=== PATIENT | male | born 1965 | race African-American/Black ===

== ENCOUNTER 2019-12-09 17:22 | Emergency (ER) | payer MEDICAID, OTHER ==
[~2019-12-09] VITALS: Ht 175.3 cm; Wt 79.4 kg
--- NOTE | 2019-12-09 17:27 | Emergency Room Report ---
History of Present Illness General Chief Complaint: Seizure Source: Patient Present Illness HPI Patient is a 54-year-old male brought in by EMS after witnessed seizure. He had a prior history of seizure disorder. He had prior history of hypertension. He had been brought in after seizure on the bus. He normally takes Dilantin. Patient is known to be postictal by paramedics. Denies any patient's noted to have a low blood pressure after the seizure. He was given IV fluids and blood pressure improved after supine position. COVID-19 risk:Contact w/high r: No COVID-19 risk:Travel to affect: No Has patient experienced corado: No Allergies: Coded Allergies: No Known Allergies (Unverified , 12/09/19) Patient History Reviewed Nursing Documentation: PMH: Agreed; PSxH: Agreed Nursing Documentation-PMH Hx Hypertension: Yes Hx Seizures: Yes Review of Systems All Other Systems: negative except mentioned in HPI Physical Exam Vital Signs Date Time Temp Pulse Resp B/P (MAP) Pulse Ox O2 Delivery O2 Flow Rate FiO2 12/09/19 17:16 98.1 75 18 133/86 (102) 97 Room Air Sp02 EP Interpretation: reviewed, normal General Appearance: normal inspection, well appearing, no apparent distress, alert, GCS 15 Head: atraumatic ENT: normal ENT inspection, hearing grossly normal, normal voice Neck: normal inspection, full range of motion, supple, no bony tend Respiratory: normal inspection, lungs clear, normal breath sounds, no respiratory distress, no retraction, no wheezing Cardiovascular #1: regular rate, rhythm, no edema Gastrointestinal: normal inspection, normal bowel sounds, non tender, soft, no guarding, no hernia Genitourinary: no CVA tenderness Musculoskeletal: normal inspection, back normal, normal range of motion Neurologic: alert, motor strength/tone normal, tailings man III-XII nml as tested, oriented x3, responsive, speech normal, normal inspection Psychiatric: normal inspection, judgement/insight normal, mood/affect normal Medical Decision Making Diagnostic Impression: Primary Impression: Seizure disorder Additional Impression: Subtherapeutic phenytoin level ER Course Patient presented for seizure. Differential diagnosis include was not limited to medication noncompliance, alcohol withdrawal, electrolyte abnormality, arrhythmia among others. Because of complexity of patient's case laboratory tests and imaging studies were ordered. Patient's laboratory testing did not show any evidence of significant abnormality other than subtherapeutic Dilantin level. Patient was loaded with Dilantin. He was stable throughout ER course. He was given prescription for further medications. At the time of discharge patient was awake alert and ambulatory. He was advised to follow-up with his primary care physician for recheck. The patient is advised to follow up with primary care doctor in 1-2 days. Patient is advised to return if any worsening condition or if any changes in status that are concerning. This report is dictated with [employer] software which may occasionally lead to discrepancies related to use of this software. Labs Test 12/09/19 17:40 White Blood Count 5.1 K/UL (4.8-10.8) Red Blood Count 5.02 M/UL (4.70-6.10) Hemoglobin 13.9 G/DL (14.2-18.0) Hematocrit 42.8 % (42.0-52.0) Mean Corpuscular Volume 85 FL (80-99) Mean Corpuscular Hemoglobin 27.6 PG (27.0-31.0) Mean Corpuscular Hemoglobin Concent 32.3 G/DL (32.0-36.0) Red Cell Distribution Width 13.3 % (11.6-14.8) Platelet Count 165 K/UL (150-450) Mean Platelet Volume 8.3 FL (6.5-10.1) Neutrophils (%) (Auto) 55.8 % (45.0-75.0) Lymphocytes (%) (Auto) 33.8 % (20.0-45.0) Monocytes (%) (Auto) 6.7 % (1.0-10.0) Eosinophils (%) (Auto) 1.4 % (0.0-3.0) Basophils (%) (Auto) 2.3 % (0.0-2.0) Sodium Level 145 MMOL/L (136-145) Potassium Level 3.2 MMOL/L (3.5-5.1) Chloride Level 107 MMOL/L (98-107) Carbon Dioxide Level 19 MMOL/L (21-32) Anion Gap 19 mmol/L (5-15) Blood Urea Nitrogen 12 mg/dL (7-18) Creatinine 1.4 MG/DL (0.55-1.30) Estimat Glomerular Filtration Rate 52.4 mL/min (>60) Glucose Level 102 MG/DL (74-106) Calcium Level 9.3 MG/DL (8.5-10.1) Total Bilirubin 0.3 MG/DL (0.2-1.0) Aspartate Amino Transf (AST/SGOT) 18 U/L (15-37) Alanine Aminotransferase (ALT/SGPT) 18 U/L (12-78) Alkaline Phosphatase 74 U/L (46-116) Total Protein 7.3 G/DL (6.4-8.2) Albumin 3.7 G/DL (3.4-5.0) Globulin 3.6 g/dL Albumin/Globulin Ratio 1.0 (1.0-2.7) Phenytoin (Dilantin) Level 1.6 ug/mL (10-20) Last Vital Signs Date Time Temp Pulse Resp B/P (MAP) Pulse Ox O2 Delivery O2 Flow Rate FiO2 12/09/19 17:16 98.1 75 18 133/86 (102) 97 Room Air Disposition: HOME, SELF-CARE Condition: Stable Scripts Phenytoin Sodium Extended* (DILANTIN*) 100 Mg Capsule 100 MG ORAL THREE TIMES A DAY, #90 CAP 0 Refills Prov: Alfred Wilson MD 12/09/19 Alfred Wilson MD Dec 09, 2019 17:27
[2019-12-09 17:30] VITALS: BP 103/66
[2019-12-09 17:53] LABS: BASOPHILS % (AUTO) 2.3 % (0.0-2.0); EOSINOPHILS % (AUTO) 1.4 % (0.0-3.0); HEMATOCRIT 42.8 % (42.0-52.0); HEMOGLOBIN 13.9 G/DL (14.2-18.0); LYMPHOCYTES % (AUTO) 33.8 % (20.0-45.0); MEAN CORPUSCULAR VOLUME 85 FL (80-99); MONOCYTES % (AUTO) 6.7 % (1.0-10.0); NEUTROPHILS % (AUTO) 55.8 % (45.0-75.0); PLATELET COUNT 165 K/UL (150-450); RED BLOOD COUNT 5.02 M/UL (4.70-6.10); RED CELL DISTRIBUTION WIDTH 13.3 % (11.6-14.8); WHITE BLOOD COUNT 5.1 K/UL (4.8-10.8)
[2019-12-09 18:02] LABS: ANION GAP 19 mmol/L (5-15); BLOOD UREA NITROGEN 12 mg/dL (7-18); CALCIUM 9.3 MG/DL (8.5-10.1); CARBON DIOXIDE 19 MMOL/L (21-32); CHLORIDE 107 MMOL/L (98-107); CREATININE 1.4 MG/DL (0.55-1.30); POTASSIUM 3.2 MMOL/L (3.5-5.1); SODIUM 145 MMOL/L (136-145)
[2019-12-09 18:10] LABS: ALANINE AMINOTRANSFERASE 18 U/L (12-78); ALBUMIN 3.7 G/DL (3.4-5.0); ALKALINE PHOSPHATASE 74 U/L (46-116); ASPARTATE AMINO TRANSFERASE 18 U/L (15-37); BILIRUBIN,TOTAL 0.3 MG/DL (0.2-1.0)
[2019-12-09] MEDS ORDERED: Phenytoin 1,000 MG in NS 275 ML IVPB ONE (18:15)
[2019-12-09] MEDS ORDERED: DILANTIN100 MG ORAL (19:00)
[2019-12-09 19:45] VITALS: BP 119/69
[2019-12-09 19:50] VITALS: BP 119/69
== END 2019-12-09 19:50 | disposition home or self-care (01) ==
LOC: EDBD 17:22 → EMR 18:06
DX: G40.909 Epilepsy, unspecified, not intractable, without status epilepticus (principal); R89.2 Abnormal level of other drugs, medicaments and biological substances in specimens from other organs, systems and tissues; I10 Essential (primary) hypertension; Z79.899 Other long term (current) drug therapy
CPT/HCPCS: 36415; 80053; 80185; 85025; 93005; 96365; J1165; J7050; Z7502; 99284